=== PATIENT | male | born 1930 | race Caucasian/White ===

== ENCOUNTER 2018-01-02 14:30 | Emergency (ER) | payer MEDICARE ==
[2018-01-02 14:42] VITALS: BP 141/79; PULSE 69; RESP 18; TEMP 97.9
--- NOTE | 2018-01-02 15:31 | ED ---
[facility] - General Chief complaint: Dental/Oral Stated complaint: Dental Pain Time Seen by Provider: 01/02/18 15:22 Source: patient, RN notes reviewed Mode of arrival: ambulatory Limitations: no limitations - History of Present Illness Initial comments: 87-year-old male presents from chief complaint Fishbone in between his teeth. Patient states that he was eating some fish and he felt the Fishbone and cannot get it out. Patient denies any bleeding patient denies any difficulty swallowing no sore throat. - Related Data Allergies Allergy/AdvReac Type Severity Reaction Status Date / Time No Known Allergies Allergy Verified 01/02/18 14:41 Review of Systems ROS Statement: Those systems with pertinent positive or pertinent negative responses have been documented in the HPI. ROS Other: All systems not noted in ROS Statement are negative. Past Medical History History of Any Multi-Drug Resistant Organisms: None Reported Additional Past Surgical History / Comment(s): Pacemaker, valve replacement Past Psychological History: No Psychological Hx Reported Smoking Status: Former smoker Past Alcohol Use History: Rare Past Drug Use History: None Reported General Exam Limitations: no limitations General appearance: alert, in no apparent distress Head exam: Present: atraumatic, normocephalic, normal inspection Eye exam: Present: normal appearance, PERRL, EOMI. Absent: scleral icterus, conjunctival injection, periorbital swelling ENT exam: Present: mucous membranes moist. Absent: normal oropharynx (There is a noted fishbone sticking out of the right side of the tongue) Neck exam: Present: normal inspection. Absent: tenderness, meningismus, lymphadenopathy Respiratory exam: Present: normal lung sounds bilaterally. Absent: respiratory distress, wheezes, rales, rhonchi, stridor Course Vital Signs 01/02/18 14:39 Temperature 97.9 F Pulse Rate 69 Respiratory 18 Rate Blood Pressure 141/79 O2 Sat by Pulse 97 Oximetry Procedures - Procedures Initial comment: Forceps were used to remove soft tissue foreign body on the right side of the tongue which was a fishbone there was no complications Medical Decision Making - Medical Decision Making 87-year-old male presented for foreign body in his tongue. This was removed using forceps and which the foreign body was a fishbone. There is no complications patient will be discharged return parameters were discussed. Disposition Clinical Impression: Foreign body of tongue Disposition: HOME SELF-CARE Condition: Stable Instructions: Soft Tissue Foreign Body (ED) Additional Instructions: Please return to the Emergency Department if symptoms worsen or any other concerns. Is patient prescribed a controlled substance at d/c from ED?: No Referrals: Vladislav Elizondo MD [Primary Care Provider] - 1-2 days Time of Disposition: 15:31
== END 2018-01-02 15:44 | disposition home or self-care (01) ==
LOC: EC 14:30
DX: T18.0XXA Foreign body in mouth, initial encounter (principal); Z87.891 Personal history of nicotine dependence; Z95.0 Presence of cardiac pacemaker; Z95.2 Presence of prosthetic heart valve
CPT/HCPCS: 99282